=== PATIENT | male | born 2000 | race Caucasian/White ===

== ENCOUNTER 2024-09-03 16:58 | Emergency (ER) | payer SELFPAY ==
[2024-09-03 17:41] VITALS: BP 142/96; PULSE 88; RESP 18; TEMP 36.9; O2SAT 99
[2024-09-03] MEDS: ACETAMINOPHEN 325MG TABLET PO NR (21:03)
== END 2024-09-03 21:37 | disposition home or self-care (01) ==
LOC: ER 16:58
DX: M79.671 Pain in right foot (principal)
CPT/HCPCS: 73610; 73630; 99284